=== PATIENT | male | born 1985 | race Caucasian/White ===

== ENCOUNTER → 2022-01-24 | Outpatient (CLI) | payer OTHER | LOC: MHCPAIN 09:05 | DX: M47.812 Spondylosis without myelopathy or radiculopathy, cervical region (principal); M54.2 Cervicalgia; M53.3 Sacrococcygeal disorders, not elsewhere classified | CPT/HCPCS: G0463 ==

== ENCOUNTER 2024-07-23 06:11 | Day surgery (SDC) | payer OTHER ==
[~2024-07-23] VITALS: Ht 185.4 cm; Wt 72.3 kg
[~2024-07-23 06:11] MED LIST: LR 1,000 ML IV SCH
[2024-07-23] MEDS ORDERED: Tranexamic Acid 1,000 MG/10 ML VIAL ONE (07:34)
[2024-07-23 07:39] VITALS: BP 101/76; PULSE 65; TEMP 98.3
[2024-07-23] MEDS ORDERED: Lidocaine 2% Viscous 15 ML UNIT DOSE MM ONE (08:13)
[2024-07-23 08:35] VITALS: BP 99/77; PULSE 76; TEMP 97.5
[2024-07-23 08:50] VITALS: BP 106/72; PULSE 68
[2024-07-23 09:05] VITALS: BP 102/67; PULSE 64
--- NOTE | 2024-07-23 09:20 | NUR ---
0835 RETURNS TO ROOM 7 PER CART WITH HOB ELEVATED 60 DEGREES. AWAKE, ALERT. RESP UNLABORED. NO COUGH. DENIES DYSPNEA OR DISCOMFORT. VITAL SIGNS OBTAINED. CALL LIGHT AT SIDE. 0850 AWAKE, ALERT. TOLERATES PO COFFEE 0903 DISCHARGE INSTRUCTIONS REVIEWED. PATIENT VERBALIZES UNDERSTANDTING. COPY PROVIDED IN DISCHARGE FOLDER. 0915 DRESSES SELF. DENIES DYSPNEA. NO COUGH
== END 2024-07-23 09:20 | disposition home or self-care (01) ==
LOC: SDCO 06:11
DX: J39.8 Other specified diseases of upper respiratory tract (principal); R63.4 Abnormal weight loss; F17.210 Nicotine dependence, cigarettes, uncomplicated; Z68.21 Body mass index [BMI] 21.0-21.9, adult
CPT/HCPCS: J2704; J7120